=== PATIENT | female | born 1995 | race Caucasian/White ===

== ENCOUNTER 2017-02-03 12:04 | Emergency (ER) | payer BC ==
--- NOTE | 2017-02-03 13:40 | DIAGNOSTIC IMAGING REPORT ---
PROCEDURE: XR WRIST MIN 3 VIEWS - RIGHT INDICATION: TRAUMA/INJURY TECHNIQUE: Four views of the right wrist. COMPARISON: None. FINDINGS: Normal mineralization. No fractures. Normal osseous alignment. No suspicious soft-tissue calcification or radiodense foreign bodies. IMPRESSION: 1. Intact right wrist.
--- NOTE | 2017-02-03 14:23 | ED ORDER SUMMARY ---
..... Patient: RONIT PATINO OrderSheet [facility] VisitID: [id number] [address] [place] [address] 21y, F Registration Date/Time: 02/03/2017 ORDER SHEET Weight: 77.1 kg (stated) Allergies: No Known Drug Allergy GENERAL ORDERS: Wrist 3 or 4V Right (in waiting room) Urgent (12:44 02/03/2017 Melita Herrera.Wilson per protocol) (Ack 13:15 PWeiler ER Tech1) (13:33 PWeiler ER Tech1) Alfredo Wrap (14:21 02/03/2017 Cyndie A.R.N.P.) (14:35 Rocío Herrera.N.) MEDICATION ORDERS: IV FLUIDS: ORDER SHEET NOTES: [Electronically signed by Shaq Salmon R.N. (14:36 02/03/2017)] [Electronically signed by Felisha HurdR.N.P. (15:46 02/03/2017)] [Electronically locked/signed by Shaq Salmon R.N. (14:36 02/03/2017)]
--- NOTE | 2017-02-03 14:23 | ED CLINICAL REPORT ---
Clinical Report - Physicians/Mid Levels [facility] [address] [place] [address] 02/03/2017 12:06 Patient: RONIT PATINO Time Seen: 14:07; initial patient contact, initial documentation, patient care assumed. Arrived- By private vehicle. Historian- patient. HISTORY OF PRESENT ILLNESS Chief Complaint: FALL. Location of injuries- right wrist. The injury occurred yesterday. Fell 5-6 feet off a horse and landed on the ground (bucked off horse). The patient complains of mild pain. No blow to the head, neck pain, loss of consciousness or seizure. Not dazed. REVIEW OF SYSTEMS No numbness, chest pain, difficulty breathing, weakness or abdominal pain. No laceration. She has no pain on weight bearing. All systems otherwise negative, except as recorded above. PAST HISTORY See nurses notes. PROBLEMS: Abrasion(s). Crush Injury. Abscess. Prior Injury, Same Area. Sprain. Immunizations. LNMP - Last Normal Menstrual Period. Dislocated Shoulder. Tetanus Status. --12:36 Shonda Conrad R.N. ADDITIONAL SURGERIES: Appendectomy. Shoulder Surgery. --12:36 Shonda Conrad R.N. SOCIAL HISTORY Never smoker. No alcohol use or drug use. No recent travel. Is a local resident. FAMILY HISTORY No significant family medical history. ADDITIONAL NOTES The nursing notes have been reviewed with agreement regarding the chief complaint, HPI, ROS, PMH and patient medications and allergies. PHYSICAL EXAM Vital Signs: 02/03/2017 12:35 BP: 122/83. HR: 57. RR: 18. O2 saturation: 100%. Temp: 97.8 F. Pain level now: 6/10. Have been reviewed as abnormal and appear to be correct. Blood pressure normal. Bradycardic. Respiratory rate normal. Temperature normal. Oxygen saturation normal. Appearance: Alert. Oriented X3. No acute distress. Head: Head non-tender. No swelling of head. Eyes: Pupils equal, round and reactive to light. EOM intact. ENT: No dental injury. Pharynx normal. Neck: Painless ROM. Non-tender. Respiratory: Chest nontender. Abdomen: No visible injury. Back: No tenderness. ROM normal. Skin: Skin intact. Skin warm and dry. Normal skin color. Normal skin turgor. Extremities: Abnormal inspection. Extremities not atraumatic. Right wrist: mild tenderness and swelling located in the area of the radial styloid and ulnar styloid. Limited ROM secondary to pain (diminished flexion, ulnar deviation and radial deviation). Neurovascular intact distally. No erythema, laceration, abrasion, ecchymosis or puncture wound. No foreign body or deformity. No joint effusion. Pelvis stable. No lower extremity edema. Neuro: Oriented X 3. No motor deficit. No sensory deficit. LABS, X-RAYS, AND EKG X-Rays: Right wrist negative. Rt Wrist X-ray: (IMPRESSION: 1. Intact right wrist. Electronically Final signed by:Juan Carlos Gilliam MD 02/03/2017 1:41:21 PM). PROGRESS AND PROCEDURES Patient counseled in person regarding the patient's stable condition, test results and diagnosis. Differential Diagnosis: Other possible considerations: fall, head injury, fx, sprain, lacs, contusions, abrasions. Above considerations are based on history, physical exam and X-Ray data. Differential diagnosis was discussed with patient. Disposition: Discharged home in good and improved condition (14:23). Condition: good and stable. CLINICAL IMPRESSION Sprain of the right radiocarpal joint. Fall on same level by slipping (horse). INSTRUCTIONS Apply ice for 20 minutes four times a day for two days until better. Don't apply ice directly to skin. Wear elastic wrap (Alfredo wrap) as directed for one weeks until better. Elevate affected areas above chest level until better. Warnings: GENERAL WARNINGS: Return or contact your physician immediately if your condition worsens or changes unexpectedly, if not improving as expected, or if other problems arise. trouble breathing, abdominal pain, chest pain. Prescription Medications: Ultram 50 mg tablets: take 1-2 orally every 6 hours as needed for pain. Dispense twenty (20). No refills. Substitution is permissible. Follow-up: Follow up with your doctor in about one week as needed. Call for an appointment. Summary of care provided to patient. Understanding of the discharge instructions verbalized by patient. (Electronically signed by Felisha Hurd A.R.N.P. 02/03/2017 15:46)
--- NOTE | 2017-02-03 14:23 | ED NURSING NOTES ---
Clinical Report - Nurses [facility] [address] [place] [address] 02/03/2017 12:06 Patient: RONIT PATINO TRIAGE Triage time 12:35. Acuity: LEVEL 4. Chief Complaint: FALL OFF A HORSE, onto the ground. Alert. No acute distress. KIERRA COMA SCORE: Kierra Coma Scale: 15- eyes open spontaneously (4); best verbal response- oriented x 4 (5); best motor response- obeys commands (6). --12:43 Shonda Conrad R.N. 12:35 02/03/17. BP: 122/83. HR: 57. RR: 18. O2 saturation: 100%. Temp: 97.8 F (oral). Pain level now: 01/01. --12:43 Shonda Conrad R.N. Weight: 77.1 kg stated. Height/Length: 64 inches Per Patient. BMI: 29.2. --12:36 Shonda Conrad R.N. Medications None. --12:36 Shonda Conrad R.N. Medication/allergy information source: the patient. --12:43 Shonda Conrad R.N. Allergies No Known Drug Allergy. --12:36 Shonda Conrad R.N. History Arrived by private vehicle. Historian: patient. Accompanied by friend. Primary physician (Ad). Location of injuries: right wrist. This occurred yesterday. PAST MEDICAL HX: Last normal menstrual period- has IUD. SOCIAL HX: Never smoker. No alcohol use or drug use. FALL RISK ASSESSMENT: Fall risk assessment completed. No fall risk identified. FUNCTIONAL ASSESSMENT: Functional assessment: no impairments noted. LEARNING NEEDS ASSESSMENT: The learning needs assessment revealed no barriers. --12:43 Shonda Conrad R.N. PROBLEMS: Abrasion(s). Crush Injury. Abscess. Prior Injury, Same Area. Sprain. Immunizations. LNMP - Last Normal Menstrual Period. Dislocated Shoulder. Tetanus Status. --12:36 Shonda Conrad R.N. ADDITIONAL SURGERIES: Appendectomy. Shoulder Surgery. --12:36 Shonda Conrad R.N. Assessment GENERAL / NEURO / PSYCH: Alert. Oriented X 4. Appears in no acute distress. Patient appears calm and cooperative. ( right radial pulse palpable, denies numbness/tingling ice pack applied). RESPIRATORY: Respirations not labored. CVS: Capillary refill less than 2 seconds. SKIN: Skin is warm and dry. --12:43 Shonda Conrad R.N. Interventions <<STRICKEN ENTRY-- ID band on patient. To treatment room. --12:43 Shonda Conrad R.N. --END STRIKE>> Correction --12:47 Shonda Conrad R.N. ID band on patient. To waiting room. --12:47 Shonda oCnrad R.N. PHYSICAL ASSESSMENT Ambulatory to room. GENERAL / NEURO / PSYCH: Alert. Oriented X 4. Appears in pain. HEENT: Pupils equal, round and reactive to light. Head non-tender. RESPIRATORY: Respirations not labored. Chest nontender. Breath sounds within normal limits. CVS: Normal heart rate and rhythm. Pulses within normal limits. Capillary refill less than 2 seconds. EXTREMITIES: Limited ROM present in the right wrist. Neuro-vascular status intact to the extremity. SKIN: Skin intact. Skin is warm and dry. --14:14 Shaq Salmon R.N. NURSING PROGRESS NOTES Reassurance given. Two patient identifiers checked. Call light placed in reach. Bed placed in lowest position. Brakes of bed on. Patient ready for evaluation- chart flagged. --14:15 Shaq Salmon R.N. DISPOSITION / DISCHARGE Departure time: 14:32. Condition at departure: unchanged and stable. No learning barriers present. Discharge instructions provided and reviewed with the patient. Reviewed warnings. Reviewed medication(s). Treatments reviewed. Patient verbalized understanding. Written instructions provided in [place]. The patient was discharged by the nurse practitioner. She was discharged home. She left the Emergency Department ambulatory and via private vehicle. Patient driving. --14:33 Shaq Salmon R.N. 14:30 02/03/17. BP: 122/66 (large adult cuff) taken on the left arm, while sitting. HR: 58. RR: 16. O2 saturation: 100% on room air. Temp: 97.8 F. Pain level now: 12/01. --14:33 Shaq Salmon R.N. Locked/Released at 02/03/2017 14:36 by Shaq Salmon R.N.
--- NOTE | 2017-02-03 14:23 | ED NURSING NOTES ---
Clinical Report - Nurses [facility] [address] [place] [address] 02/03/2017 12:06 Patient: RONIT PATINO TRIAGE Triage time 12:35. Acuity: LEVEL 4. Chief Complaint: FALL OFF A HORSE, onto the ground. Alert. No acute distress. KIERRA COMA SCORE: Kierra Coma Scale: 15- eyes open spontaneously (4); best verbal response- oriented x 4 (5); best motor response- obeys commands (6). --12:43 Shonda Conrad R.N. 12:35 02/03/17. BP: 122/83. HR: 57. RR: 18. O2 saturation: 100%. Temp: 97.8 F (oral). Pain level now: 01/01. --12:43 Shonda Conrad R.N. Weight: 77.1 kg stated. Height/Length: 64 inches Per Patient. BMI: 29.2. --12:36 Shonda Conrad R.N. Medications None. --12:36 Shonda Conrad R.N. Medication/allergy information source: the patient. --12:43 Shonda Conrad R.N. Allergies No Known Drug Allergy. --12:36 Shonda Conrad R.N. History Arrived by private vehicle. Historian: patient. Accompanied by friend. Primary physician (Ad). Location of injuries: right wrist. This occurred yesterday. PAST MEDICAL HX: Last normal menstrual period- has IUD. SOCIAL HX: Never smoker. No alcohol use or drug use. FALL RISK ASSESSMENT: Fall risk assessment completed. No fall risk identified. FUNCTIONAL ASSESSMENT: Functional assessment: no impairments noted. LEARNING NEEDS ASSESSMENT: The learning needs assessment revealed no barriers. --12:43 Shonda Conrad R.N. PROBLEMS: Abrasion(s). Crush Injury. Abscess. Prior Injury, Same Area. Sprain. Immunizations. LNMP - Last Normal Menstrual Period. Dislocated Shoulder. Tetanus Status. --12:36 Shonda Conrad R.N. ADDITIONAL SURGERIES: Appendectomy. Shoulder Surgery. --12:36 Shonda Conrad R.N. Assessment GENERAL / NEURO / PSYCH: Alert. Oriented X 4. Appears in no acute distress. Patient appears calm and cooperative. ( right radial pulse palpable, denies numbness/tingling ice pack applied). RESPIRATORY: Respirations not labored. CVS: Capillary refill less than 2 seconds. SKIN: Skin is warm and dry. --12:43 Shonda Conrad R.N. Interventions <<STRICKEN ENTRY-- ID band on patient. To treatment room. --12:43 Shonda Conrad R.N. --END STRIKE>> Correction --12:47 Shonda Conrad R.N. ID band on patient. To waiting room. --12:47 Shonda Conrad R.N. PHYSICAL ASSESSMENT Ambulatory to room. GENERAL / NEURO / PSYCH: Alert. Oriented X 4. Appears in pain. HEENT: Pupils equal, round and reactive to light. Head non-tender. RESPIRATORY: Respirations not labored. Chest nontender. Breath sounds within normal limits. CVS: Normal heart rate and rhythm. Pulses within normal limits. Capillary refill less than 2 seconds. EXTREMITIES: Limited ROM present in the right wrist. Neuro-vascular status intact to the extremity. SKIN: Skin intact. Skin is warm and dry. --14:14 Shaq Salmon R.N. NURSING PROGRESS NOTES Reassurance given. Two patient identifiers checked. Call light placed in reach. Bed placed in lowest position. Brakes of bed on. Patient ready for evaluation- chart flagged. --14:15 Shaq Salmon R.N. DISPOSITION / DISCHARGE Departure time: 14:32. Condition at departure: unchanged and stable. No learning barriers present. Discharge instructions provided and reviewed with the patient. Reviewed warnings. Reviewed medication(s). Treatments reviewed. Patient verbalized understanding. Written instructions provided in [place]. The patient was discharged by the nurse practitioner. She was discharged home. She left the Emergency Department ambulatory and via private vehicle. Patient driving. --14:33 Shaq Salmon R.N. 14:30 02/03/17. BP: 122/66 (large adult cuff) taken on the left arm, while sitting. HR: 58. RR: 16. O2 saturation: 100% on room air. Temp: 97.8 F. Pain level now: 12/01. --14:33 Shaq Salmon R.N. Locked/Released at 02/03/2017 14:36 by Shaq Salmon R.N.
--- NOTE | 2017-02-03 14:23 | ED ORDER SUMMARY ---
..... Patient: RONIT PATINO OrderSheet [facility] VisitID: [id number] [address] [place] [address] 21y, F Registration Date/Time: 02/03/2017 ORDER SHEET Weight: 77.1 kg (stated) Allergies: No Known Drug Allergy GENERAL ORDERS: Wrist 3 or 4V Right (in waiting room) Urgent (12:44 02/03/2017 Melita Herrera.Wilson per protocol) (Ack 13:15 PWeiler ER Tech1) (13:33 PWeiler ER Tech1) Alfredo Wrap (14:21 02/03/2017 Cyndie A.R.N.P.) (14:35 Rocío Herrera.N.) MEDICATION ORDERS: IV FLUIDS: ORDER SHEET NOTES: [Electronically signed by Shaq Salmon R.N. (14:36 02/03/2017)] [Electronically signed by Felisha HurdR.N.P. (15:46 02/03/2017)] [Electronically locked/signed by Shaq Salmon R.N. (14:36 02/03/2017)]
--- NOTE | 2017-02-03 15:46 | ED MED RECONCILIATION SUMMARY ---
Patient: RONIT PATINO Medication Reconciliation Report [facility] VisitID: [id number] [place] [address] 21y, F Registration Date/Time: 02/03/2017 Weight: 77.1 kg Height/Length: 64 in. BMI: 29.2 ALLERGIES: No Known Drug Allergy The patient's Home Medications are listed below: NONE. The source(s) of the original Home Medication information: patient The following Medications were given to the patient in the Emergency Department: None. The following Medications were prescribed to the patient: Ultram 50 mg tablets: take 1-2 orally every 6 hours as needed for pain. Dispense twenty (20). No refills. Substitution is permissible. -- Felisha Hurd A.R.N.P.
--- NOTE | 2017-02-03 15:46 | ED MAR SUMMARY ---
..... Medication Administration Record [facility] [address] [place], [place] [id number] Patient: RONIT PATINO Visit ID: [id number] 21y, F Weight: 77.1 kg Height/Length: 64 in BMI: 29.2 ALLERGIES: No Known Drug Allergy
--- NOTE | 2017-02-03 15:46 | ED MED RECONCILIATION SUMMARY ---
Patient: RONIT PATINO Medication Reconciliation Report [facility] VisitID: [id number] [place] [address] 21y, F Registration Date/Time: 02/03/2017 Weight: 77.1 kg Height/Length: 64 in. BMI: 29.2 ALLERGIES: No Known Drug Allergy The patient's Home Medications are listed below: NONE. The source(s) of the original Home Medication information: patient The following Medications were given to the patient in the Emergency Department: None. The following Medications were prescribed to the patient: Ultram 50 mg tablets: take 1-2 orally every 6 hours as needed for pain. Dispense twenty (20). No refills. Substitution is permissible. -- Felisha Hurd A.R.N.P.
--- NOTE | 2017-02-03 15:46 | ED MAR SUMMARY ---
..... Medication Administration Record [facility] [address] [place], [place] [id number] Patient: RONIT PATINO Visit ID: [id number] 21y, F Weight: 77.1 kg Height/Length: 64 in BMI: 29.2 ALLERGIES: No Known Drug Allergy
--- NOTE | 2017-02-03 15:46 | ED DISCHARGE INSTRUCTIONS ---
Patient: RONIT PATINO General Instructions [facility] VisitID: [id number] [place] [address] 21y, F Registration Date/Time: 02/03/2017 Sprain of the right radiocarpal joint. Fall on same level by slipping (horse). INSTRUCTIONS Apply ice for 20 minutes four times a day for two days until better. Don't apply ice directly to skin. Wear elastic wrap (Alfredo wrap) as directed for one weeks until better. Elevate affected areas above chest level until better. Warnings: GENERAL WARNINGS: Return or contact your physician immediately if your condition worsens or changes unexpectedly, if not improving as expected, or if other problems arise. trouble breathing, abdominal pain, chest pain. Prescription Medications: Ultram 50 mg tablets: take 1-2 orally every 6 hours as needed for pain. Dispense twenty (20). No refills. Substitution is permissible. Follow-up: Follow up with your doctor in about one week as needed. Call for an appointment. Summary of care provided to patient. Understanding of the discharge instructions verbalized by patient. ADDITIONAL INFORMATION Mechanical Fall You have had a fall today. It appears that the cause is mechanical. That means that you slipped, tripped or lost your balance. If your fall had been due to fainting or a seizure, further tests would be required. Home Care: Rest today and resume your normal activities when you are feeling back to normal. If you were injured during the fall, follow the advice from your doctor regarding care of your injury. You may use acetaminophen (Tylenol) or ibuprofen (Motrin, Advil) to control pain, unless another pain medicine was prescribed. [NOTE: If you have chronic liver or kidney disease or ever had a stomach ulcer or GI bleeding, talk with your doctor before using these medicines.] Fall Prevention: Was there anything that caused your fall that can be fixed, removed, or replaced? Make your home safe by keeping walkways clear of objects you may trip over. Use non-slip pads under rugs. Do not walk in poorly lit areas. Do not stand on chairs or wobbly ladders. Use caution when reaching overhead or looking upward. This position can cause a loss of balance. Be sure your shoes fit properly, have non-slip bottoms and are in good condition. Be cautious when going up and down curbs, and walking on uneven sidewalks. If your balance is poor, consider using a cane or walker. Stay as active as you can. Balance, flexibility, strength, and endurance all come from exercise. They all play a role in preventing falls. Follow Up with your doctor or as advised by our staff. Get Prompt Medical Attention if any of the following occur: Repeated mechanical falls, or unexplained falls Dizziness, fainting or seizure Severe headache Chest pain or shortness of breath Palpitations (very rapid or very slow or irregular heartbeat) Blood in vomit, stools (black or red color) Weakness of an arm or leg or one side of the face Difficulty with speech or vision Sprain, Wrist A sprain is an injury to the ligaments or capsule that holds a joint together. There are no broken bones. Most sprains take about three to six weeks to heal. If the ligament is completely torn (severe sprain), it can take months to recover. Most wrist sprains are treated with a splint, wrist brace or elastic wrap for support. Severe sprains may require surgery. Home care The following guidelines will help you care for your injury at home: 1) Keep your arm elevated to reduce pain and swelling. This is very important during the first 48 hours. 2) Apply an ice pack (ice cubes in a plastic bag, wrapped in a towel) over the injured area for 20 minutes every 12 hours the first day. Continue with ice packs 34 times a day for the next two days, then as needed for the relief of pain and swelling. 3) You may use acetaminophen or ibuprofen to control pain, unless another pain medicine was prescribed.If you have chronic liver or kidney disease or ever had a stomach ulcer or GI bleeding, talk with your doctor before using these medicines. 4) If you were given a splint or brace, wear it for the time advised by your doctor. Follow-up care Follow up with your doctor as advised. Any X-rays you had today dont show any broken bones, breaks, or fractures. Sometimes fractures dont show up on the first X-ray. Bruises and sprains can sometimes hurt as much as a fracture. These injuries can take time to heal completely. If your symptoms dont improve or they get worse, talk with your doctor. You may need a repeat X-ray. When to seek medical care Get prompt medical attention if any of the following occur: Pain or swelling increases Fingers or hand becomes cold, blue, numb, or tingly Alfredo Wrap An "Alfredo Bandage" refers to any elastic bandage wrap (2-6" wide). This is used to apply support and compression to an arm or leg. It will help prevent or reduce swelling also. When applying the bandage, it should not be stretched too tightly. A tight Alfredo Wrap will reduce circulation and cause tingling or numbness in the hand or foot. It may increase the pain under the bandage. If you get these symptoms, remove the wrap and rest the limb. Symptoms should go away within 1-2 hours. Once symptoms go away, reapply the bandage with less stretch. If symptoms do not go away after 1-2 hours with the bandage off, call your doctor or return to this facility promptly. Tramadol Hydrochloride Oral tablet What is this medicine? TRAMADOL (TRA ma dole) is a pain reliever. It is used to treat moderate to severe pain in adults. How should I use this medicine? Take this medicine by mouth with a full glass of water. Follow the directions on the prescription label. If the medicine upsets your stomach, take it with food or milk. Do not take more medicine than you are told to take. Talk to your freight receiver regarding the use of this medicine in children. Special care may be needed. What side effects may I notice from receiving this medicine? Side effects that you should report to your doctor or health career development consultant as soon as possible: allergic reactions like skin rash, itching or hives, swelling of the face, lips, or tongue breathing difficulties, wheezing confusion itching light headedness or fainting spells redness, blistering, peeling or loosening of the skin, including inside the mouth seizures Side effects that usually do not require medical attention (report to your doctor or health career development consultant if they continue or are bothersome): constipation dizziness drowsiness headache nausea, vomiting What may interact with this medicine? Do not take this medicine with any of the following medications: MAOIs like Carbex, Eldepryl, Marplan, Nardil, and Parnate This medicine may also interact with the following medications: alcohol or medicines that contain alcohol antihistamines benzodiazepines bupropion carbamazepine or oxcarbazepine clozapine cyclobenzaprine digoxin furazolidone linezolid medicines for depression, anxiety, or psychotic disturbances medicines for migraine headache like almotriptan, eletriptan, frovatriptan, naratriptan, rizatriptan, sumatriptan, zolmitriptan medicines for pain like pentazocine, buprenorphine, butorphanol, meperidine, nalbuphine, and propoxyphene medicines for sleep muscle relaxants naltrexone phenobarbital phenothiazines like perphenazine, thioridazine, chlorpromazine, mesoridazine, fluphenazine, prochlorperazine, promazine, and trifluoperazine procarbazine warfarin What if I miss a dose? If you miss a dose, take it as soon as you can. If it is almost time for your next dose, take only that dose. Do not take double or extra doses. Where should I keep my medicine? Keep out of the reach of children. Store at room temperature between 15 and 30 degrees C (59 and 86 degrees F). Keep container tightly closed. Throw away any unused medicine after the expiration date. What should I tell my health care provider before I take this medicine? They need to know if you have any of these conditions: brain tumor depression drug abuse or addiction head injury if you frequently drink alcohol containing drinks kidney disease or trouble passing urine liver disease lung disease, asthma, or breathing problems seizures or epilepsy suicidal thoughts, plans, or attempt; a previous suicide attempt by you or a family member an unusual or allergic reaction to tramadol, codeine, other medicines, foods, dyes, or preservatives or trying to get breast-feeding What should I watch for while using this medicine? Tell your doctor or health career development consultant if your pain does not go away, if it gets worse, or if you have new or a different type of pain. You may develop tolerance to the medicine. Tolerance means that you will need a higher dose of the medicine for pain relief. Tolerance is normal and is expected if you take this medicine for a long time. Do not suddenly stop taking your medicine because you may develop a severe reaction. Your body becomes used to the medicine. This does NOT mean you are addicted. Addiction is a behavior related to getting and using a drug for a non-medical reason. If you have pain, you have a medical reason to take pain medicine. Your doctor will tell you how much medicine to take. If your doctor wants you to stop the medicine, the dose will be slowly lowered over time to avoid any side effects. You may get drowsy or dizzy. Do not drive, use machinery, or do anything that needs mental alertness until you know how this medicine affects you. Do not stand or sit up quickly, especially if you are an older patient. This reduces the risk of dizzy or fainting spells. Alcohol can increase or decrease the effects of this medicine. Avoid alcoholic drinks. You may have constipation. Try to have a bowel movement at least every 2 to 3 days. If you do not have a bowel movement for 3 days, call your doctor or health career development consultant. Your mouth may get dry. Chewing sugarless gum or sucking hard candy, and drinking plenty of water may help. Contact your doctor if the problem does not go away or is severe. You have been given the following additional information: Fall, Mechanical Wrist Sprain Alfredo Wrap Tramadol Hydrochloride Oral tablet (Electronically signed by Felisha Hurd A.R.N.P. 02/03/2017 15:46)
== END 2017-02-03 14:32 | disposition home or self-care (01) ==
LOC: ED SRH 12:04
DX: S63.511A Sprain of carpal joint of right wrist, initial encounter (principal); V80.010A Animal-rider injured by fall from or being thrown from horse in noncollision accident, initial encounter; Y93.52 Activity, horseback riding; Y99.9 Unspecified external cause status; Y92.9 Unspecified place or not applicable